=== PATIENT | male | born 1955 | race Caucasian/White ===

== ENCOUNTER → 2018-04-27 13:32 | Outpatient (CLI) | payer MEDICAID, SELFPAY | DX: B18.2 Chronic viral hepatitis C (principal) | CPT/HCPCS: 36415 ==

== ENCOUNTER 2018-05-05 17:31 | Emergency (ER) | payer MEDICAID, SELFPAY ==
[2018-05-05 17:31] VITALS: BMI 35.1
--- NOTE | 2018-05-05 17:43 | ED.VISSUMM ---
- ER Visit Summary Date of Service: 05/05/18 Chief Complaint: Cardiac arrest History of Present Illness: The patient is a 63 M who was in town for rehab from alcoholism. Patient was last seen 1 hour prior to EMS arrival. EMS arrived to find the patient in asystole. An IO was placed in the left leg and 2 rounds of epinephrine and 2 mg of Narcan were given. He remained in asystole until presenting here in the emergency department. Mechanical compressions were being performed by EMS. Oral airway in place. Patient is from out of [facility] Physical Examination: Patient appears comatose. He is cyanotic. He has bagged respirations. Oral airway in place. There is no palpable pulse or cardiac activity. Patient is cool to the touch Test Results: Bedside ultrasound ?2 demonstrates no cardiac activity Emergency Department Course and Treatment: Patient received continuous CPR except for rhythm checks. 2 rounds of epinephrine were given. Patient remained in asystole. Patient was pronounced at 1739 hrs. Daughter was in room for resuscitation. Impression: 1. Cardiac arrest This note was generated with [employer] dictation software. It may contain incorrect words, spelling, and punctuation that were not noted in review of the chart prior to signing ED Disposition - Plan for ED Patient: Chief Complaint: CPR Referrals: Care Physician,No Primary [Primary Care Provider] -
--- NOTE | 2018-05-05 17:46 | ED.DCSUM_ITS ---
- ER Visit Summary Date of Service: 05/05/18 Chief Complaint: Cardiac arrest History of Present Illness: The patient is a 63 M who was in town for rehab from alcoholism. Patient was last seen 1 hour prior to EMS arrival. EMS arrived to find the patient in asystole. An IO was placed in the left leg and 2 rounds of epinephrine and 2 mg of Narcan were given. He remained in asystole until presenting here in the emergency department. Mechanical compressions were being performed by EMS. Oral airway in place. Patient is from out of [facility] Physical Examination: Patient appears comatose. He is cyanotic. He has bagged respirations. Oral airway in place. There is no palpable pulse or cardiac activity. Patient is cool to the touch Test Results: Bedside ultrasound ?2 demonstrates no cardiac activity Emergency Department Course and Treatment: Patient received continuous CPR except for rhythm checks. 2 rounds of epinephrine were given. Patient remained in asystole. Patient was pronounced at 1739 hrs. Daughter was in room for resuscitation. Impression: 1. Cardiac arrest This note was generated with [employer] dictation software. It may contain incorrect words, spelling, and punctuation that were not noted in review of the chart prior to signing ED Disposition - Plan for ED Patient: Chief Complaint: CPR Referrals: Care Physician,No Primary [Primary Care Provider] -
--- NOTE | 2018-05-05 17:52 | CM.ED ---
Social Work Note SW responded to [employer]. Pt's daughter, Elizabeth Roy, present. Introduced self and role at [facility]. Per Elizabeth she lives in [place] and today was her father's last day in alcohol rehab at the [facility] [place] in [place]. States she arrived and refuses to go in so one of the residents went in to get him. Reports that she was waiting and waiting and the squad showed up and the resident came out and said, I'm sorry. States that she had just brought him home with weekend to visit and had brought him back on Friday night. States that her mother is dying too. Physician inquires if she would like to come in while CPR in progress. Elizabeth enters and TOD called in her presence. Provided emotional support. Smith states that she was upset with the pt yesterday, and was too late today. Offer support and affirm that this was not her timing. Elizabeth declines to have anyone called. States that she needs to get her kids as there is no one that lives around them and can help. Her children are 18, 15 and 14. She denies that the pt had a PCP or had any medical history she was aware of however reports that he never went to the doctor. Denies that he had any advanced directives, and reports that they would use [place] home [facility]. Allow Elizabeth some time alone and will periodically check on for support. Jyoti Qureshi, SUPERVISOR GRADING, PIZZAMAKER
--- NOTE | 2018-05-05 18:11 | CM.ED ---
Social Work Note Updated by distribution collection operator, that this will be a room attendants's case. Dr. Castillo will not be here for approximately 2 hrs. Once Elizabeth is does visiting with her father the [place] [facility] After [place]. Castillo is done [facility] will contact Elizabeth, and from their [facility] will contact her. Into pt's room and updated Elizabeth. Elizabeth thanks RN, Wang Sinclair, and NATALYA for support provided, and leaves to get her children. Made aware that staff is aware if she needs to call in with any questions. Jyoti Qureshi, POCKET SECRETARY ASSEMBLER, VIDEO SOFTWARE ENGINEER
== END 2018-05-05 18:43 ==
PROVIDERS: Emergency Provider Emergency Medicine
DX: I46.9 Cardiac arrest, cause unspecified (principal); R40.20 Unspecified coma; R23.0 Cyanosis; F10.21 Alcohol dependence, in remission
CPT/HCPCS: 92950; 99281